=== PATIENT | male | born 1935 | race Caucasian/White ===

== ENCOUNTER → 2016-10-22 | Outpatient (CLI) | payer BC ==
[~2016-10-22] MED LIST: ASCO500C43 PO; ASPITAB2 PO; BIMA0.01 OP; BRIM0.2S OPR; INDA1TAB3 PO; SIMV-151 PO; TELM1TAB PO
[2016-10-22 09:43] LABS: BASO % 1.6 %; BASO ABS # 0.12 K/uL (0-0.2); COMPLETE YES; EOS % 5.3 %; HEMATOCRIT 37.9 % (42-52); IG% 0.4 %; LYMPH % 26.3 %; LYMPH ABS # 2.02 K/uL (1.2-3.4); MEAN CELL VOLUME 86.5 fL (80-100); MEAN CORPUSCULAR HEMOGLOBIN 28.3 pg (25-34); MEAN CORPUSCULAR HGB CONC 32.7 g/dl (32-36); MEAN PLATELET VOLUME 8.8 fL (7.4-10.4); MONO % 14.6 %; NEUT % 51.8 %; PLATELET COUNT 264 K/uL (130-400); RED BLOOD COUNT 4.38 M/uL (4.7-6.1); WHITE BLOOD COUNT 7.68 K/uL (4.8-10.8)
[2016-10-22 09:59] LABS: ESTIMATED AVERAGE GLUCOSE 134 mg/dl; HA1C FLAG Normal (Normal)
[2016-10-22 10:15] LABS: ALT/SGPT 26 U/L (12-78); AST/SGOT 32 U/L (15-37); BLOOD UREA NITROGEN 36 mg/dl (7-18); BUN/CREATININE RATIO 27.8 (10-20); CALCIUM 9.5 mg/dl (8.5-10.1); CARBON DIOXIDE 34 mmol/L (21-32); CHLORIDE 93 mmol/L (98-107); CHOLESTEROL 131 mg/dl (0-200); GLUCOSE 103 mg/dl (70-99); SODIUM 133 mmol/L (136-145); TRIGLYCERIDES 58 mg/dl (0-150); VERY LOW DENSITY LIPOPROT CALC 12 mg/dl
[2016-10-22 10:25] LABS: CHOLESTEROL/HDL RATIO 2.1; HDL CHOLESTEROL 61 mg/dl; LDL CHOLESTEROL CALCULATED 58 mg/dl
[2016-10-22 10:36] LABS: URINE APPEARANCE CLEAR (CLEAR); URINE BILIRUBIN NEG (NEG); URINE COLOR YELLOW; URINE NITRITE NEG (NEG); URINE PH 5.5 (4.5-7.5); URINE SPECIFIC GRAVITY 1.016 (1.000-1.030); UROBILINOGEN NEG (NEG)
[2016-10-22 10:45] LABS: MANUAL MICROSCOPIC REQUIRED? NO; REVIEW REQ? NO
--- NOTE | 2016-10-28 08:22 | CODING QUERY MEDICAL NECESSITY ---
SUPPORTING DIAGNOSIS NEEDED A supporting diagnosis is required for the test/procedure performed on this patient in order for us to be reimbursed by the patient's insurance. Please provide a supporting diagnosis for the following test/procedure listed below next to the test name along with your signature. *If there is no additional diagnosis for this patient that would support the following test/procedure please document that below next to the test/procedure. Test(s)/Procedure(s) that require a supporting diagnosis: DOS 10/22 * Hba1c DIAGNOSIS: Provider Signature: Date: Thank you Laly Campoverde [facility] Information Management Once completed, please kindly fax back to [phone] For questions please call [phone]
== END | disposition home or self-care (01) ==
LOC: C.LAB1850 08:52
PROVIDERS: ATTEND Internal Medicine
DX: E78.5 Hyperlipidemia, unspecified (principal); R73.9 Hyperglycemia, unspecified

== ENCOUNTER → 2016-11-07 | Outpatient (CLI) | payer BC ==
--- NOTE | 2016-11-07 10:05 | DIAGNOSTIC IMAGING REPORT ---
EXAMINATION: RENAL ULTRASOUND CLINICAL HISTORY: Hypertension, hyperlipidemia. COMPARISON STUDY: None FINDINGS: The right kidney measures 10.6 cm. The left kidney measures 10.3 cm. There is no evidence of hydronephrosis. There is a 3.8 cm lower pole right renal cyst. There is a 5.7 cm left renal cyst. Bilateral ureteral jets were visualized. No bladder masses are visualized ultrasonographically. IMPRESSION : Bilateral renal cysts. No evidence of hydronephrosis. Electronically signed by: Yazan Chapin M.D. 11/07/2016 10:04 AM Dictated Date/Time: 11/07/2016 10:02 AM
--- NOTE | 2016-11-07 10:18 | DIAGNOSTIC IMAGING REPORT ---
Duplex renal arterial Doppler DUPLEX RENAL ARTERY CLINICAL HISTORY: E78.5 [id number] TECHNIQUE: Renal arterial Doppler COMPARISON STUDY: None FINDINGS: Waveforms and velocity characteristics are within normal limits bilaterally. There is no significant velocity increase. Impedance characteristics are unremarkable. IMPRESSION: Normal study Electronically signed by: Madhu Lockwood M.D. 11/07/2016 10:16 AM Dictated Date/Time: 11/07/2016 10:15 AM
== END | disposition home or self-care (01) ==
LOC: C.ULTR 08:59
PROVIDERS: ATTEND Internal Medicine
DX: E78.5 Hyperlipidemia, unspecified (principal); N28.1 Cyst of kidney, acquired

== ENCOUNTER → 2017-02-18 | Outpatient (CLI) | payer BC ==
--- NOTE | 2017-02-18 10:12 | DIAGNOSTIC IMAGING REPORT ---
BILATERAL CAROTID DOPPLER STUDY HISTORY: Mental status change L AORTIC VALVE STENOSIS COMPARISON: None. TECHNIQUE: Real-time, grayscale, and color Doppler sonography of the carotid arteries was performed. Imaging reviewed in the transverse and longitudinal planes. All measurements were calculated based on NASCET criteria. FINDINGS: Antegrade flow is seen in the bilateral vertebral arteries. The brachial pressures are hemodynamically similar. Considerable plaque formation bilaterally The peak systolic velocity within the right ICA is 125. The right systolic ratio is 1.5. The peak systolic velocity within the left ICA is 453. The left systolic ratio is 6.6. IMPRESSION: 1. 90% plus stenosis left internal carotid artery 2. 30% narrowing right internal carotid artery. 3. Considerable plaque formation bilaterally Electronically signed by: Madhu Lockwood M.D. 02/18/2017 10:11 AM Dictated Date/Time: 02/18/2017 10:10 AM
== END | disposition home or self-care (01) ==
LOC: C.ULTRBC 09:19
PROVIDERS: ATTEND Nurse Practitioner Acute Care
DX: I35.0 Nonrheumatic aortic (valve) stenosis (principal); R42 Dizziness and giddiness; I65.23 Occlusion and stenosis of bilateral carotid arteries

== ENCOUNTER → 2017-04-08 | Outpatient (CLI) | payer BC ==
[2017-04-08 10:45] LABS: BLOOD UREA NITROGEN 27 mg/dl (7-18); BUN/CREATININE RATIO 17.9 (10-20); CALCIUM 9.7 mg/dl (8.5-10.1); CARBON DIOXIDE 31 mmol/L (21-32); CHLORIDE 103 mmol/L (98-107); GLUCOSE 110 mg/dl (70-99); POTASSIUM 4.4 mmol/L (3.5-5.1); SODIUM 138 mmol/L (136-145)
== END | disposition home or self-care (01) ==
LOC: C.LAB1850 08:58
PROVIDERS: ATTEND Nurse Practitioner
DX: I35.0 Nonrheumatic aortic (valve) stenosis (principal)

== ENCOUNTER → 2017-04-30 | Outpatient (CLI) | payer BC ==
[2017-04-30 12:09] LABS: BASO % 1.9 %; BASO ABS # 0.13 K/uL (0-0.2); COMPLETE YES; EOS % 5.7 %; HEMATOCRIT 33.7 % (42-52); LYMPH ABS # 1.75 K/uL (1.2-3.4); MEAN CELL VOLUME 88.9 fL (80-100); MEAN CORPUSCULAR HEMOGLOBIN 28.5 pg (25-34); MEAN PLATELET VOLUME 8.8 fL (7.4-10.4); MONO % 18.1 %; NEUT % 48.3 %; PLATELET COUNT 271 K/uL (130-400); RED BLOOD COUNT 3.79 M/uL (4.7-6.1)
[2017-04-30 12:35] LABS: BLOOD UREA NITROGEN 39 mg/dl (7-18); BUN/CREATININE RATIO 27.7 (10-20); CALCIUM 9.7 mg/dl (8.5-10.1); CARBON DIOXIDE 29 mmol/L (21-32); CHLORIDE 100 mmol/L (98-107); GLUCOSE 84 mg/dl (70-99); POTASSIUM 4.5 mmol/L (3.5-5.1); SODIUM 134 mmol/L (136-145)
[2017-04-30 12:41] LABS: FERRITIN 132.8 ng/ml (8.0-388.0); TOTAL IRON BINDING CAPACITY 338 mcg/dl (250-450)
== END | disposition home or self-care (01) ==
LOC: C.LAB1850 10:53
PROVIDERS: ATTEND Physician Assistant
DX: R79.89 Other specified abnormal findings of blood chemistry (principal)

== ENCOUNTER → 2017-05-19 | Outpatient (CLI) | payer BC ==
[2017-05-19 12:15] LABS: BASO % 0.9 %; BASO ABS # 0.08 K/uL (0-0.2); COMPLETE YES; EOS % 7.8 %; IG% 0.7 %; MEAN CELL VOLUME 89.1 fL (80-100); MEAN CORPUSCULAR HEMOGLOBIN 28.2 pg (25-34); MEAN CORPUSCULAR HGB CONC 31.7 g/dl (32-36); MEAN PLATELET VOLUME 8.8 fL (7.4-10.4); NEUT % 54.6 %; PLATELET COUNT 268 K/uL (130-400); RED BLOOD COUNT 3.93 M/uL (4.7-6.1)
[2017-05-19 12:34] LABS: BLOOD UREA NITROGEN 27 mg/dl (7-18); BUN/CREATININE RATIO 18.2 (10-20); CALCIUM 10.4 mg/dl (8.5-10.1); CARBON DIOXIDE 30 mmol/L (21-32); CHLORIDE 100 mmol/L (98-107); GLUCOSE 112 mg/dl (70-99); POTASSIUM 4.3 mmol/L (3.5-5.1); SODIUM 135 mmol/L (136-145)
[2017-05-19 12:43] LABS: URINE APPEARANCE CLEAR (CLEAR); URINE BILIRUBIN NEG (NEG); URINE COLOR YELLOW; URINE EPITHELIAL CELL AUTO 0-5 /lpf (0-5); URINE NITRITE NEG (NEG); URINE SPECIFIC GRAVITY 1.015 (1.000-1.030); UROBILINOGEN NEG (NEG)
[2017-05-19 12:46] LABS: MANUAL MICROSCOPIC REQUIRED? NO; REVIEW REQ? NO
[2017-05-19 13:23] LABS: RATIO 113.1 mcg/mg (0-30.0)
== END | disposition home or self-care (01) ==
LOC: C.LAB1850 10:55
PROVIDERS: ATTEND Internal Medicine
DX: Z00.00 Encounter for general adult medical examination without abnormal findings (principal); E78.5 Hyperlipidemia, unspecified; I10 Essential (primary) hypertension; R79.89 Other specified abnormal findings of blood chemistry

== ENCOUNTER → 2017-05-19 | Outpatient (CLI) | payer BC ==
--- NOTE | 2017-05-19 12:50 | DIAGNOSTIC IMAGING REPORT ---
CHEST 2 VIEWS ROUTINE CLINICAL HISTORY: Hyperlipidemia. COMPARISON STUDY: Chest radiograph June 22, 2014. FINDINGS: Lung volumes are normal. No pneumothorax or pleural effusion is present. Pulmonary vascularity is normal. Cardiomediastinal silhouette is normal. Aortic valve prosthesis and cholecystectomy clips are noted. There is no evidence of pulmonary edema. Several suspected calcified granulomas are noted, the largest of which is within the left lung. IMPRESSION: No acute cardiopulmonary findings. Electronically signed by: Chacorta Lorenz M.D. 05/19/2017 12:49 PM Dictated Date/Time: 05/19/2017 12:48 PM
== END | disposition home or self-care (01) ==
LOC: C.RAD1850 10:24
PROVIDERS: ATTEND Internal Medicine
DX: E78.5 Hyperlipidemia, unspecified (principal)

== ENCOUNTER → 2017-10-06 | Outpatient (CLI) | payer BC ==
[2017-10-06 10:02] LABS: BASO % 1.4 %; BASO ABS # 0.11 K/uL (0-0.2); EOS % 6.3 %; EOS ABS # 0.48 K/uL (0-0.5); HEMATOCRIT 35.2 % (42-52); HEMOGLOBIN 11.5 g/dL (14.0-18.0); IG# 0.06 K/uL (0.00-0.02); LYMPH ABS # 2.21 K/uL (1.2-3.4); MEAN CORPUSCULAR HEMOGLOBIN 28.8 pg (25-34); MEAN CORPUSCULAR HGB CONC 32.7 g/dl (32-36); MEAN PLATELET VOLUME 8.9 fL (7.4-10.4); MONO ABS # 0.99 K/uL (0.11-0.59); NEUT % 49.5 %; NEUT ABS # 3.76 K/uL (1.4-6.5); PLATELET COUNT 276 K/uL (130-400); RED CELL DISTRIBUTION WIDTH CV 12.8 % (11.5-14.5); RED CELL DISTRIBUTION WIDTH SD 41.4 fL (36.4-46.3); WHITE BLOOD COUNT 7.61 K/uL (4.8-10.8)
[2017-10-06 10:34] LABS: ALT/SGPT 29 U/L (12-78); AST/SGOT 24 U/L (15-37); BLOOD UREA NITROGEN 43 mg/dl (7-18); CALCIUM 9.6 mg/dl (8.5-10.1); CARBON DIOXIDE 29 mmol/L (21-32); CHOLESTEROL 115 mg/dl (0-200); CREATININE 1.49 mg/dl (0.60-1.40); GLUCOSE 105 mg/dl (70-99); POTASSIUM 4.8 mmol/L (3.5-5.1); SODIUM 134 mmol/L (136-145)
[2017-10-06 10:37] LABS: LDL CHOLESTEROL CALCULATED 55 mg/dl
[2017-10-06 12:20] LABS: HEMOGLOBIN A1C 6.1 % (4.5-5.6)
== END | disposition home or self-care (01) ==
LOC: C.LAB1850 08:41
PROVIDERS: ATTEND Physician Assistant
DX: I10 Essential (primary) hypertension (principal); E78.5 Hyperlipidemia, unspecified; Z95.2 Presence of prosthetic heart valve

== ENCOUNTER → 2017-10-15 | Outpatient (CLI) | payer BC | END | disposition home or self-care (01) | LOC: C.LAB1850 14:13 | PROVIDERS: ATTEND Internal Medicine | DX: D64.9 Anemia, unspecified (principal) ==

== ENCOUNTER → 2017-10-26 | Outpatient (CLI) | payer BC ==
[2017-10-29 13:19] LABS: FECAL OCCULT BLOOD #1 NEGATIVE (NEGATIVE); FECAL OCCULT BLOOD #2 NEGATIVE (NEGATIVE); FECAL OCCULT BLOOD #3 NEGATIVE (NEGATIVE)
== END | disposition home or self-care (01) ==
LOC: C.LABSPEC 12:34
PROVIDERS: ATTEND Internal Medicine
DX: D64.9 Anemia, unspecified (principal)